=== PATIENT | male | born 1970 | race Caucasian/White ===

== ENCOUNTER → 2016-11-26 | Day surgery (SDC) | payer BC ==
[~2016-11-26] MED LIST: ADIPEX-P37.5 M1 PO; AMITRIPTYLINE H25 MG PO; ATIVAN PO; ATIVAN0.5 MG PO; BACLOFEN10 MG; BACLOFEN10 MG PO; CALCIUM + D 6001 TA1; CERTAGEN PO; COCONUT OIL; DARVOCET-N 1001 TAB; DARVOCET-N 1001 TAB PO; FLEXERIL10 MG; IBUPROFEN PO; KCL PO; KLONOPIN; MELOXICAM15 MG PO; MICRO-K PO; MULTI-DAY1 TAB; MULTI-DAY1 TAB PO; PARAFON FORTE500 M2 PO; PERCOCET 71 UDTAB 7.; PERCOCET 71 UDTAB 7. PO; ULTRAM; VITAMIN D 4001 UDTAB PO; VOLTAREN75 MG PO; [UNRECOGNIZED DRUG - REMARK]
--- NOTE | ~2016-11-26 | OR ---
Unit #: [id number] #: [id number] Patient: AMINAH MERCHANT [id number] [address] [place], [place] [address] [id number] O MR#: [id number] NAME: AMINAH MERCHANT ROOM: Date of Procedure: 11/26/2016 Admission Date: 11/26/2016 Surgeon: Arthur Salcedo M.D. : 1970 Attending Physician: Arthur Salcedo M.D. Primary Care Physician: Generic Doctor Not In System OPERATIVE REPORT SERVICES PROVIDED 1. Therapeutic lumbar epidural steroid injection. 2. Fluoroscopy of sacral spine. 3. IV sedation to facilitate above. PREOPERATIVE DIAGNOSES 1. Degenerative disk disease, L5-S1. 2. Other medical history including obstructive sleep apnea, on BiPAP. POSTOPERATIVE DIAGNOSES 1. Degenerative disk disease, L5-S1. 2. Other medical history including obstructive sleep apnea, on BiPAP. PROCEDURE PERFORMED Lumbar epidural steroid injection using fluoroscopy. FOLLOW-UP/REVIEW OF SYSTEMS/PHYSICAL EXAM Mr. Merchant is here for lumbar epidural steroid injection to address the lumbar radiculopathy. He denies side effects with medication management. He has no medical contraindications. INDICATIONS/COMMENTS AND CONSENTS/STATEMENT OF MEDICAL NECESSITY The patient's current medications, allergies and vital signs are documented in the nursing assessment. The risks and benefits of the intervention were discussed with the patient in detail including but not limited to infection, bleeding, meningitis, steroid induced side-effects, nerve damage, paralysis, spinal headaches, neuritis, persistent or worsening pain. The patient wishes to proceed. A separate pain assessment is also in the chart. I have reviewed all of this and have reviewed this with the patient. A current History and Physical is also attached. DESCRIPTION OF PROCEDURE 1. Monitoring and positioning: After appropriate discussions it was decided to perform the procedure under local anesthesia with supplemental intravenous sedation. Vital signs were monitored in pre, intra and post-procedure phase. Monitoring included EKG, non-invasive BP, pulse oximetry, and temperature. These are documented and were stable. Appropriate supports and restraints were used. 2. Sedation: A total of 4 mg of Versed and 100 mcg of fentanyl was administered preoperatively. Zofran 4 mg intravenously and Benadryl 25 mg intravenously was administered postoperatively. 3. Lumbar epidural injection/fluoroscopy: The patient was placed in the Unit #: [id number] #: [id number] Patient: AMINAH MERCHANT sitting position. Positional supports were used. Fluoroscopy of the lumbar spine was performed. Sterile prep and drape with carried out with ChloraPrep. Local anesthesia was with infiltrated with 3 mL of preservative-free 1% Lidocaine. Once anesthesia was established, a 20-gauge 4.5-inch Tuohy epidural needle was inserted at the L5-S1 level epidurally, using a right interlaminar approach, loss of resistance to saline technique, and with fluoroscopic guidance. Needle placement tested negative for subarachnoid and intravascular placement. An intra-operative epidurogram was now performed. Intra-operative epidurogram: 1 mL of Isovue-M300 was injected through the epidural needle under continuous fluoroscopy. The dye was seen to spread to L5 in the cephalad direction, and to S1 in the caudal direction. The spread of the dye was uniform. 1 mL of preservative-free normal saline was used to irrigate the dye off the epidural space. There was no intravascular or intrathecal spread of contrast. A lumbar epidural steroid injection was now performed using a total of 3 mL of solution containing 0.2% bupivacaine in 2 mL followed by 80 mg of Depo-Medrol in 2 mL and 50 mcg of fentanyl was administered intravenously (the patient used to receive Duramorph 7 mg before) fluoroscopic imaging confirmed spread of medication. The needle was then removed intact. The skin was washed off. Prep solution and dressings were applied at the injection site. The patient tolerated the procedure well. The patient was then observed in the recovery area for 30 minutes. RESULTS The patient had a consistent block with the dose of local anesthetic used. Pain relief was satisfactory. There were no complications or side effects. DISCHARGE CONDITION 1. Patient was discharged in satisfactory condition accompanied by a family member. 2. Post-procedure instructions were given. PLAN The patient will return to the clinic in 2 months for re-assessment and office visit. I thank the patient's referring physician for the opportunity to participate in the care of this patient. Please do not hesitate to call for any questions regarding this patient's pain management. Dictated by... Keren Valdez TD: 11/27/2016 01:22 JOB #: [id number] Unit #: [id number] #: [id number] Patient: AMINAH MERCHANT OPERATIVE REPORT X Arthur Salcedo MD PROCEDURE OPERATIVE NOTE
== END | disposition home or self-care (01) ==
LOC: CCSC 07:07
DX: M51.17 Intervertebral disc disorders with radiculopathy, lumbosacral region (principal); G47.33 Obstructive sleep apnea (adult) (pediatric); J45.909 Unspecified asthma, uncomplicated
CPT/HCPCS: J1040; J1200; J2250; J2274; J2405; J3010

== ENCOUNTER → 2016-12-31 | Day surgery (SDC) | payer BC ==
--- NOTE | ~2016-12-31 | OR ---
Unit #: [id number] #: [id number] Patient: AMINAH MERCHANT [id number] [address] [address] [id number] O MR#: [id number] NAME: AMINAH MERCHANT ROOM: Date of Procedure: 12/31/2016 Admission Date: 12/31/2016 Surgeon: Arthur Salcedo M.D. : 1970 Attending Physician: Arthur Salcedo M.D. OPERATIVE REPORT REFERRING PHYSICIAN Primary care. SERVICES PROVIDED 1. Therapeutic caudal epidural steroid injection with Duramorph 5 mg intra epidurally. 2. IV sedation to facilitate the above. 3. Fluoroscopy of the lumbosacral spine. PREOPERATIVE DIAGNOSES 1. Degenerative disk disease at L4-L5, L5-S1, lumbar radiculopathy. 2. Other medical history including hypertension. POSTOPERATIVE DIAGNOSES 1. Degenerative disk disease at L4-L5, L5-S1, lumbar radiculopathy. 2. Other medical history including hypertension. PROCEDURE PERFORMED Caudal epidural steroid injection using fluoroscopy. FOLLOW-UP/REVIEW OF SYSTEMS/PHYSICAL EXAM Mr. Merchant is here for a caudal epidural steroid injection to address the lumbar radiculopathy. The patient did have a lumbar epidural steroid injection at his previous visit, with minimal long-term pain relief. He reports that caudal epidural intervention that helped him better. He has no medical contraindications to the procedure performed as follows with his consent. INDICATIONS/COMMENTS AND CONSENTS/STATEMENT OF MEDICAL NECESSITY The patient's current medications, allergies and vital signs are documented in the nursing assessment. The risks and benefits of the intervention(s) were discussed with the patient in detail including but not limited to infection, bleeding, meningitis, steroid induced side-effects, nerve damage, paralysis, spinal headaches, neuritis, persistent or worsening pain. The patient wishes to proceed. A separate pain assessment is also in the chart. I have reviewed all of this and have reviewed this with the patient. A current History and Physical is also attached. DESCRIPTION OF PROCEDURE(S) 1. Monitoring and positioning: After appropriate discussions it was decided to perform the procedure under local anesthesia with supplemental Unit #: [id number] #: [id number] Patient: AMINAH MERCHANT intravenous sedation. Vital signs were monitored in pre, intra and post-procedure phase. Monitoring included EKG, non-invasive BP, pulse oximetry, and temperature. These are documented and were stable. Appropriate supports and restraints were used. 2. Sedation: A total of 4 mg of versed and 100 mcg of fentanyl was administered. 3. Caudal epidural injection/fluoroscopy: The patient was placed in the prone position. Positional supports were used. Fluoroscopy of the lumbar spine was performed using a caudal angle. Sterile prep and drape with carried out with ChloraPrep. The approximate location of the sacral hiatus was determined by palpating the sacral cornu. Local anesthesia was with infiltrated with 3 mL of preservative-free 1% Lidocaine. Once anesthesia was established, a 22-gauge Tuohy epidural needle was inserted at the sacral hiatus level through the sacrococcygeal ligament, epidurally, into the caudal spinal canal, using loss of resistance to saline technique, and with fluoroscopic guidance. Needle placement tested negative for subarachnoid and intravascular placement. An intra-operative epidurogram was now performed. Intra-operative epidurogram: 1 milliliter(s) of Isovue-M300 was injected through the epidural needle under continuous fluoroscopy. The dye was seen to spread to L5 in the cephalad direction, and to the sacral hiatus in the caudal direction. The spread of the dye was uniform and bilateral. 1 milliliter of preservative-free normal saline was used to irrigate the dye off the epidural space. There was no intravascular or intrathecal spread of contrast. A caudal epidural steroid injection was performed using a total of 10 mL of a solution containing 0.7% lidocaine and 80 mg of Depo-Medrol with preservative-free Duramorph 5 mg diluted in normal saline. Fluoroscopic imaging confirmed spread of medication. The needle was then removed intact. The skin was washed off. Prep solution and dressings were applied at the injection site. The patient tolerated the procedure well. The patient was then observed in the recovery area for 30 minutes. RESULTS The patient had a consistent block with the dose of local anesthetic used. Pain relief was satisfactory. There were no complications or side effects. DISCHARGE CONDITION 1. The patient was discharged in satisfactory condition accompanied by a family member. 2. Post-procedure instructions were given. PLAN(S) The patient was advised to return to the clinic in 2 months for re-assessment and office visit. I thank the patient's referring physician for the opportunity to participate in the care of this patient. Please do not hesitate to call for any questions regarding this patient's pain management. Dictated by... Keren Valdez/mikayla Unit #: [id number] #: [id number] Patient: AMINAH MERCHANT TD: 12/31/2016 23:25 JOB #: [id number] OPERATIVE REPORT Page 1 of 1 X Arthur Salcedo MD X PROCEDURE OPERATIVE NOTE
== END | disposition home or self-care (01) ==
LOC: CCSC 08:09
DX: M51.16 Intervertebral disc disorders with radiculopathy, lumbar region (principal); M51.17 Intervertebral disc disorders with radiculopathy, lumbosacral region; M47.26 Other spondylosis with radiculopathy, lumbar region; I10 Essential (primary) hypertension; J45.909 Unspecified asthma, uncomplicated
CPT/HCPCS: J1040; J1200; J2250; J2274; J2405; J3010